=== PATIENT | male | born 1995 | race Caucasian/White ===

== ENCOUNTER 2016-07-27 09:52 | Emergency (ER) | payer OTHER ==
[2016-07-27] MEDS ORDERED: IBUPROFEN 800 MG TABLET ONE (11:14)
[2016-07-27] MEDS ORDERED: CYCLOBENZAPRINE HCL 10 MG TABLET ONE (11:14)
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
== END 2016-07-27 12:30 | disposition home or self-care (01) ==
LOC: ED 09:52
DX: R51 Headache (principal); H91.91 Unspecified hearing loss, right ear; V43.52XA Car driver injured in collision with other type car in traffic accident, initial encounter; Y92.410 Unspecified street and highway as the place of occurrence of the external cause